=== PATIENT | female | born 1955 | race Two or more races ===

== ENCOUNTER 2017-02-18 20:02 | Inpatient (IN) | payer OTHER ==
[~2017-02-18 20:02] MED LIST: ACIPHEX20 MG; ALLEGRA; ANALPRAM-HC 2.530 GM; ASACOL400 MG; AURALGAN EAR DR15 ML OT; BENEFIBER; CIPRO XR500 MG PO; CIPRO500 MG PO; CLONAZEPAM0.5 M2 PO; CULTURELLE1 CA1 PO; CYCLOBENZAPRINE10 MG; DARVOCET-N 1001 TAB; DARVOCET-N 1001 TAB PO; ENABLEX15 MG; FLAGYL500 M1 PO; FLAGYL500 MG; FLAGYL500 MG PO; FLEXERIL; FLEXERIL10 MG; FLEXERIL10 MG PO; FLORA Q; HYOMAX-SR0.375 MG PO; KAPIDEX60 MG PO; KLONOPIN0.5 MG; KLONOPIN0.5 MG PO; LEVAQUIN500 MG PO; LEVSIN/SL0.125 MG SL; LISINOPRIL2.5 M1 PO; LISINOPRIL5 M1 PO; LOMOTIL TABLET1 TAB PO; LOPERAMIDE2 MG; LORAZEPAM0.5 MG PO; LYRICA50 MG; MACROBID 100 M100 MG PO; MELLARIL100 MG; METRONIDAZOLE500 MG; MIRAPEX0.25 M1 PO; MIRAPEX0.25 MG; MIRAPEX0.25 MG PO; NEXIUM20 M1 PO; NEXIUM40 MG PO; NORCO 5/325 TAB1 TAB; OS-CAL 500+D T1 EACH PO; PAXIL CR37.5 MG; PAXIL CR37.5 MG PO; PAXIL40 MG; PERCOCET 5/3251 TAB PO; PLAQUENIL200 MG; PLAQUENIL200 MG PO; PREDNISONE TAPER; PREDNISONE10 MG; PREDNISONE5 M1 PO; PROAIR HFA8.5 GM INH; PROVERA5 M1 PO; RELAFEN500 MG; RESTORIL15 MG PO; SYMAX-SL0.125 MG SL; TYLENOL325 MG PO; ULTRAM50 M1 PO; ULTRAM50 MG; ULTRAM50 MG PO; VICODIN 5/500 T1 TAB PO; VITAMIN D1000 UNIT; VITAMIN D1000 UNIT PO; WELLBUTRIN SR100 MG; WELLBUTRIN XL150 MG; WELLBUTRIN XL300 M3 PO; WELLBUTRIN XL300 MG; WELLBUTRIN XL300 MG PO; ZOFRAN ODT4 MG/UDTAB PO; [UNRECOGNIZED DRUG - CODE]; [UNRECOGNIZED DRUG - OTHER]; [UNRECOGNIZED DRUG - OTHER] PO
[2017-02-18] MEDS ORDERED: CYCLOBENZAPRINE10 M1 PO (21:17)
[2017-02-18] MEDS ORDERED: WELLBUTRIN XL150 M1 PO (21:18)
[2017-02-18] MEDS ORDERED: ESTRING1 EACH VG (21:19)
[2017-02-18] MEDS ORDERED: FLONASE ALLERG9.9 ML (21:20)
[2017-02-18] MEDS ORDERED: URSODIOL PO (21:20)
[2017-02-18 21:32] LABS: BASO % 0.3 % (0-2); EOS % 3.1 % (0-7); EOSINOPHIL ABSOLUTE COUNT 0.2 tho/cmm (0.0-0.7); HCT-HEMATOCRIT 43.6 % (34.0-49.0); HGB-HEMOGLOBIN 14.5 gm/dl (12.0-15.5); IMMATURE GRANULOCYTES ABSOLUTE 0.01 tho/cmm (0-0.03); IMMATURE GRANULOCYTES PERCENT 0.1 % (0-0.3); LYMPH % 31.4 % (20-45); LYMPH ABSOLUTE COUNT 2.5 tho/cmm (0.8-4.5); MCH (MEAN CORPUSCULAR HGB) 28.8 pg (28.0-32.0); MCHC MEAN CORPUSCULAR HGB CONC 33.3 % (32.0-36.0); MCV (MEAN CELL VOLUME) 86.7 fl (82.0-96.0); MONO % 5.5 % (0-12); MONOCYTE ABSOLUTE COUNT 0.4 tho/cmm (0.0-1.2); NEUTROPHIL ABSOLUTE COUNT 4.7 tho/cmm (1.6-8.0); NEUTROPHIL-AUTOMATED 4.7 tho/cmm (1.6-8.0); NEUTROPHILS % 59.6 % (40-80); PLATELET COUNT 240 tho/cmm (150-450); RED BLOOD COUNT 5.03 mil/cmm (4.00-5.20); RED CELL DISTRIBUTION WIDTH 12.9 % (12.4-16.4); WHITE BLOOD COUNT 7.8 tho/cmm (4.0-10.0)
[2017-02-18 21:46] LABS: ALB/GLOB RATIO 0.8 (0.8-2.0); ALBUMIN 3.9 g/dl (3.5-5.0); ALKALINE PHOSPHATASE 99 U/L (33-138); ALT/SGPT 179 U/L (12-78); ANION GAP 12 mmol/L (0-20); AST/SGOT 110 U/L (10-40); BILIRUBIN,TOTAL 0.4 mg/dl (0-1.5); BLOOD UREA NITROGEN 7 mg/dl (6-24); CALCIUM 9.2 mg/dl (8.5-10.5); CARBON DIOXIDE-VENOUS 26 mmol/L (22-32); CHLORIDE 107 mmol/l (96-110); CREATININE 0.79 mg/dl (0.50-1.10); GLUCOSE 119 mg/dL (70-110); LIPASE 173 U/L (73-393); POTASSIUM 3.9 mmol/L (3.7-5.1); SODIUM 141 mmol/L (135-145); eGFR VALUE FOR BLACK >90 mL/Min
[2017-02-18 23:27] LABS: URINE BILIRUBIN NEGATIVE (NEG); URINE BLOOD NEGATIVE (NEG); URINE GLUCOSE (UA) NEGATIVE (NEG); URINE KETONE NEGATIVE (NEG); URINE LEUKOCYTE ESTERASE NEGATIVE (NEG); URINE NITRITE NEGATIVE (NEG); URINE PH 6.5 (5.0-8.0); URINE PROTEIN SMALL (NEG)
[2017-02-18 23:31] LABS: URINE APPEARANCE CLEAR; URINE COLOR YELLOW
[2017-02-18 23:56] LABS: URINE EPITHELIAL CELLS 0 /[HPF] (0-10); URINE RBC 0 /[HPF] (0-5); URINE WBC 0 /[HPF] (0-5)
[2017-02-19 06:02] LABS: BASO % 0.3 % (0-2); EOS % 1.3 % (0-7); EOSINOPHIL ABSOLUTE COUNT 0.1 tho/cmm (0.0-0.7); HCT-HEMATOCRIT 41.3 % (34.0-49.0); HGB-HEMOGLOBIN 13.3 gm/dl (12.0-15.5); IMMATURE GRANULOCYTES ABSOLUTE 0.01 tho/cmm (0-0.03); IMMATURE GRANULOCYTES PERCENT 0.1 % (0-0.3); LYMPH % 24.7 % (20-45); MCH (MEAN CORPUSCULAR HGB) 28.2 pg (28.0-32.0); MCHC MEAN CORPUSCULAR HGB CONC 32.2 % (32.0-36.0); MCV (MEAN CELL VOLUME) 87.5 fl (82.0-96.0); MEAN PLATELET VOLUME 10.2 cmc (9.4-12.4); MONOCYTE ABSOLUTE COUNT 0.4 tho/cmm (0.0-1.2); NEUTROPHIL ABSOLUTE COUNT 5.5 tho/cmm (1.6-8.0); NEUTROPHIL-AUTOMATED 5.5 tho/cmm (1.6-8.0); NEUTROPHILS % 68.6 % (40-80); PLATELET COUNT 227 tho/cmm (150-450); RED BLOOD COUNT 4.72 mil/cmm (4.00-5.20)
[2017-02-19 06:07] LABS: ALB/GLOB RATIO 0.8 (0.8-2.0); ALBUMIN 3.3 g/dl (3.5-5.0); ALKALINE PHOSPHATASE 80 U/L (33-138); ALT/SGPT 149 U/L (12-78); BILIRUBIN,TOTAL 0.5 mg/dl (0-1.5); BLOOD UREA NITROGEN 8 mg/dl (6-24); CALCIUM 8.3 mg/dl (8.5-10.5); CARBON DIOXIDE-VENOUS 25 mmol/L (22-32); CHLORIDE 107 mmol/l (96-110); CREATININE 0.88 mg/dl (0.50-1.10); GLUCOSE 126 mg/dL (70-110); SODIUM 140 mmol/L (135-145); eGFR VALUE FOR BLACK 83 mL/Min
[2017-02-19 06:12] LABS: ANION GAP 12 mmol/L (0-20); AST/SGOT 94 U/L (10-40); POTASSIUM 4.1 mmol/L (3.7-5.1)
--- NOTE | 2017-02-20 15:09 | NUR ---
VIRTUAL CARE NOTE: PT RESTING ON BED, STATES DOING OK, NG REMOVED, ADVANCED DIET. PT DENIES ANY NEEDS OR CONCERNS AT THIS TIME. DISCHARGE PLAN DISCUSSED POSSIBLE HOME TOMORROW.
[2017-02-21] MEDS ORDERED: TYLENOL325 M2 PO (11:38)
[2017-05-07] MEDS ORDERED: ZOFRAN ODT4 MG PO (12:06)
== END 2017-02-21 13:50 | DRG 390 ==
LOC: EDMED 20:02 → EMR2 02-19 01:40 → 5WD 02-19 01:45
PROVIDERS: Emergency Medicine; Internal Medicine; ADMIT Hospitalist
DX: K56.60 Unspecified intestinal obstruction (principal); K74.5 Biliary cirrhosis, unspecified; I10 Essential (primary) hypertension; K58.9 Irritable bowel syndrome, unspecified; K21.9 Gastro-esophageal reflux disease without esophagitis; K75.81 Nonalcoholic steatohepatitis (NASH); G25.81 Restless legs syndrome; E11.9 Type 2 diabetes mellitus without complications; E73.9 Lactose intolerance, unspecified; M19.90 Unspecified osteoarthritis, unspecified site; F32.9 Major depressive disorder, single episode, unspecified; Z91.040 Latex allergy status; Z87.891 Personal history of nicotine dependence; Z88.5 Allergy status to narcotic agent; Z88.0 Allergy status to penicillin; Z88.2 Allergy status to sulfonamides; Z90.49 Acquired absence of other specified parts of digestive tract; Z87.19 Personal history of other diseases of the digestive system
CPT/HCPCS: G0009; J2405; J3010; J7030; Q9967

== ENCOUNTER 2017-04-02 19:44 | Emergency (ER) | payer OTHER ==
[~2017-04-02 19:44] MED LIST changes: +CYCLOBENZAPRINE10 M1 PO; +ESTRING1 EACH VG; +FLONASE ALLERG9.9 ML; +TYLENOL325 M2 PO; +URSODIOL PO; +WELLBUTRIN XL150 M1 PO
[2017-05-07] MEDS ORDERED: ZOFRAN ODT4 MG PO (12:06)
== END 2017-04-02 22:09 ==
LOC: EDMED 19:44
DX: S90.31XA Contusion of right foot, initial encounter (principal); W17.89XA Other fall from one level to another, initial encounter; Y92.019 Unspecified place in single-family (private) house as the place of occurrence of the external cause